=== PATIENT | male | born 1940 | race Caucasian/White ===

== ENCOUNTER 2017-05-24 16:47 | Inpatient (IN) | payer MEDICARE, BC ==
[~2017-05-24] VITALS: Ht 180.3 cm; Wt 92.5 kg
[2017-05-24 16:51] VITALS: BP 148/66; PULSE 71; RESP 16; TEMP 98; O2SAT 96
[2017-05-24] MEDS ORDERED: OMEP20TA93 PO (16:58)
--- NOTE | 2017-05-24 17:05 | PD ---
HPI Chief Complaint: Fall Time Seen by Provider: 16:59 Travel History International Travel<30 days: No Contact w/Intl Traveler<30days: No Traveled to known affect area: No History of Present Illness HPI 77-year-old male here with his for evaluation of right elbow pain after a mechanical trip and fall that occurred about an hour prior to arrival. Patient reports that he tripped on his driveway, falling forward onto her right outstretched arm. Reports that he scraped his bilateral knees, but the main pain is in his right elbow. He was able to ambulate after the fall. Denies LOC. No neck or back pain. Right elbow pain is 5 out of 10, constant, worse with movements, non-radiating. He denies right wrist or right shoulder pain. No left upper extremity pain. Reports that his last tetanus was 2 years ago. No antiplatelet or anticoagulant use. He is right-hand dominant. PFSH Past Medical History GERD: Yes Tetanus Vaccination: < 5 Years Influenza Vaccination: Yes ?: Not Past Surgical History Joint Replacement: Yes (left hip , ) Social History Alcohol Use: Yes (occ) Tobacco Use: Yes ([facility] cigar ) Substance Use: No Allergies-Medications (Allergen,Severity, Reaction): Coded Allergies: No Known Allergies (Unverified , 05/24/17) Reported Meds & Prescriptions Reported Meds & Active Scripts Active Reported Omeprazole 20 Mg Tab 20 Mg PO DAILY Review of Systems Except as stated in HPI: all other systems reviewed are Neg Physical Exam Narrative GENERAL: Well-developed, well-nourished, awake, alert, pleasant, comfortable, no apparent distress. SKIN: Focused skin assessment warm/dry. Superficial abrasions to bilateral anterior knees. If he can't right posterior elbow edema with mild ecchymosis. HEAD: Atraumatic. Normocephalic. EYES: Pupils equal and round. No scleral icterus. No injection or drainage. ENT: Mucous membranes pink and moist. NECK: Trachea midline. No JVD. No midline cervical spine step-off or tenderness. CARDIOVASCULAR: Regular rate and rhythm. Bilateral distal radial pulses are brisk and equal. Brisk capillary refill in right hand. RESPIRATORY: No accessory muscle use. MUSCULOSKELETAL: Right posterior elbow with significant edema with mild ecchymosis, no skin breaks, moderate diffuse tenderness, limited range of flexion and extension as well as pronation and supination. Right wrist/hand/ shoulder without obvious deformity, without tenderness, with normal range of motion. NEUROLOGICAL: Awake and alert. No obvious cranial nerve deficits. Motor grossly within normal limits. Normal speech. Normal sensation throughout entire right upper extremity. PSYCHIATRIC: Appropriate mood and affect; insight and judgment normal. Data Data Last Documented VS Vital Signs Date Time Temp Pulse Resp B/P (MAP) Pulse Ox O2 Delivery O2 Flow Rate FiO2 05/24/17 16:51 98.0 71 16 148/66 (93) 96 Orders Orders Elbow, Complete (4 Vws) (05/24/17 ) Forearm (2vws) (05/24/17 ) Basic Metabolic Panel (Bmp) (05/24/17 17:51) Complete Blood Count With Diff (05/24/17 17:51) Prothrombin Time / Inr (Pt) (05/24/17 17:51) Act Partial Throm Time (Ptt) (05/24/17 17:51) Iv Access Insert/Monitor (05/24/17 17:51) Ecg Monitoring (05/24/17 17:51) Oximetry (05/24/17 17:51) Sodium Chloride 0.9% Flush (Ns Flush) (05/24/17 18:00) Morphine Inj (Morphine Inj) (05/24/17 18:00) Splint Or Brace Apply/Monitor (05/24/17 18:21) Chest, Single Ap (05/24/17 ) Consult Orthopedic (05/24/17 ) Admit Order (Ed Use Only) (05/24/17 18:41) Labs Laboratory Tests Test 05/24/17 17:55 White Blood Count 8.8 TH/MM3 Red Blood Count 5.09 MIL/MM3 Hemoglobin 14.8 GM/DL Hematocrit 45.2 % Mean Corpuscular Volume 88.7 FL Mean Corpuscular Hemoglobin 29.0 PG Mean Corpuscular Hemoglobin Concent 32.7 % Red Cell Distribution Width 14.8 % Platelet Count 232 TH/MM3 Mean Platelet Volume 8.9 FL Neutrophils (%) (Auto) 78.3 % Lymphocytes (%) (Auto) 11.8 % Monocytes (%) (Auto) 6.1 % Eosinophils (%) (Auto) 0.9 % Basophils (%) (Auto) 2.9 % Neutrophils # (Auto) 6.9 TH/MM3 Lymphocytes # (Auto) 1.0 TH/MM3 Monocytes # (Auto) 0.5 TH/MM3 Eosinophils # (Auto) 0.1 TH/MM3 Basophils # (Auto) 0.3 TH/MM3 CBC Comment DIFF FINAL Differential Comment Prothrombin Time 10.5 SEC Prothromb Time International Ratio 1.0 RATIO Activated Partial Thromboplast Time 21.7 SEC Blood Urea Nitrogen 16 MG/DL Creatinine 1.20 MG/DL Random Glucose 132 MG/DL Calcium Level 8.3 MG/DL Sodium Level 143 MEQ/L Potassium Level 4.4 MEQ/L Chloride Level 108 MEQ/L Carbon Dioxide Level 27.4 MEQ/L Anion Gap 8 MEQ/L Estimat Glomerular Filtration Rate 58 ML/MIN MDM Medical Decision Making Medical Screen Exam Complete: Yes Emergency Medical Condition: Yes Differential Diagnosis Right elbow fracture versus dislocation Narrative Course Right elbow x-ray shows a comminuted fracture of the proximal ulna with displaced olecranon component. Radial head fracture as well. Case discussed with orthopedist Dr. Gonzalez who recommends placing the patient in a posterior long-arm splint and transferring him to the main hospital for ORIF tomorrow. NPO after midnight. The patient is amenable to this plan. Labs reviewed and are essentially unremarkable. Case discussed with hospitalist Dr. Smiley who will admit the patient to the hospitalist service. Diagnosis Primary Impression: Closed fracture of right elbow Qualified Codes: S42.401A - Unspecified fracture of lower end of right humerus , initial encounter for closed fracture Admitting Information Admitting Physician Requests: Admit Osei Feldman MD May 24, 2017 17:05
--- NOTE | 2017-05-24 17:50 | RADRPT ---
EXAM DATE/TIME: 05/24/2017 17:24 [facility] COMPARISON: No previous studies available for comparison. INDICATIONS : Trauma to elbow. MEDICAL HISTORY : Previously broken elbow. SURGICAL HISTORY : None. ENCOUNTER: Initial ACUITY: 1 day PAIN SCORE: 7/10 LOCATION: Right upper extremity elbow, posterior. FINDINGS: 4 views of the right elbow. Comminuted fracture of the proximal ulna involving the coronoid process a nd the olecranon process. Olecranon process component is displaced 1.5 cm. Fracture of the radial hea d with intra-articular involvement and up to 4 mm displacement. Large joint effusion. CONCLUSION: 1. Comminuted fracture of the proximal ulna with displaced olecranon component. 2. Radial head fracture. Bayron Cohen MD on May 24, 2017 at 17:46 Board Certified Radiologist. This report was verified electronically.
--- NOTE | 2017-05-24 17:51 | RADRPT ---
EXAM DATE/TIME: 05/24/2017 17:24 [facility] COMPARISON: No previous studies available for comparison. INDICATIONS : Trauma to elbow. MEDICAL HISTORY : previously broken elbow. SURGICAL HISTORY : None. ENCOUNTER: Initial ACUITY: 1 day PAIN SCORE: 7/10 LOCATION: Right upper extremity proximal radius and ulna. FINDINGS: 2 views of the forearm. Proximal radius and ulna fractures fully described on elbow series report. No evidence of more distal fracture. CONCLUSION: Proximal radius and ulna fractures. Bayron Cohen MD on May 24, 2017 at 17:48 Board Certified Radiologist. This report was verified electronically.
[2017-05-24] MEDS ORDERED: MORPHINE SULFATE 2 MG/ML INJ IV PUSH ONE (18:00)
[2017-05-24] MEDS ORDERED: SODIUM CHLORIDE 0.9% FLUSH 10 ML FLUSH IV FLUSH PRN ×2 (18:00→18:45)
[2017-05-24 18:19] LABS: AUTOMATED NEUTROPHIL # 6.9 TH/MM3 (1.8-7.7); BASOPHIL # 0.3 TH/MM3 (0-0.2); BASOPHIL % 2.9 % (0.0-2.0); EOSINOPHIL # 0.1 TH/MM3 (0-0.4); EOSINOPHIL % 0.9 % (0.0-4.0); HEMATOCRIT 45.2 % (39.0-51.0); HEMOGLOBIN 14.8 GM/DL (13.0-17.0); LYMPH % 11.8 % (9.0-44.0); MEAN CELL VOLUME 88.7 FL (80.0-100.0); MEAN CORPUSCULAR HGB CONC 32.7 % (32.0-36.0); MEAN PLATELET VOLUME 8.9 FL (7.0-11.0); MONO % 6.1 % (0.0-8.0); MONOCYTE # 0.5 TH/MM3 (0-0.9); NEUT % 78.3 % (16.0-70.0); PLATELET COUNT 232 TH/MM3 (150-450); RED BLOOD COUNT 5.09 MIL/MM3 (4.50-5.90); RED CELL DISTRIBUTION WIDTH 14.8 % (11.6-17.2); WHITE BLOOD COUNT 8.8 TH/MM3 (4.0-11.0)
[2017-05-24 18:31] LABS: BICARBONATE 27.4 MEQ/L (21.0-32.0); CALCIUM 8.3 MG/DL (8.5-10.1)
[2017-05-24 18:32] LABS: PROTHROMBIN TIME - PATIENT 10.5 SEC (9.8-11.6)
[2017-05-24 18:35] LABS: CREATININE 1.2 MG/DL (0.60-1.30)
[2017-05-24] MEDS ORDERED: MAGNESIUM HYDROXIDE SUSP 30 ML CUP PO PRN (18:45)
[2017-05-24] MEDS ORDERED: ACETAMINOPHEN/HYDROcodone 325 MG/7.5 MG TAB PO PRN (18:45)
[2017-05-24] MEDS ORDERED: BISACODYL 10 MG SUPP RECTAL PRN (18:45)
[2017-05-24] MEDS ORDERED: LACTULOSE SYRUP 20 GM/30 ML CUP PO PRN (18:45)
[2017-05-24] MEDS ORDERED: NALOXONE HCL 0.4 MG/ML AMP IV PUSH PRN (18:45)
[2017-05-24] MEDS ORDERED: ONDANSETRON HCL 4 MG/2 ML VIAL IVP PRN (18:45)
[2017-05-24] MEDS ORDERED: SENNOSIDES 8.6 MG TAB PO PRN (18:45)
[2017-05-24] MEDS ORDERED: ACETAMINOPHEN 500 MG CPLT PO PRN (18:45)
[2017-05-24 19:10] VITALS: BP 129/59; PULSE 73; RESP 20; TEMP 98.1; O2SAT 95
--- NOTE | 2017-05-24 19:19 | RADRPT ---
EXAM DATE/TIME: 05/24/2017 18:49 [facility] COMPARISON: No previous studies available for comparison. INDICATIONS : Pre-op for broken elbow. Evaluate for pneumonia, pneumothorax, or any other communicable diseases. MEDICAL HISTORY : None. SURGICAL HISTORY : None. ENCOUNTER: Initial ACUITY: 1 day PAIN SCORE: 0/10 LOCATION: Bilateral chest FINDINGS: Single AP view of the chest. The lungs are clear. Cardiomediastinal silhouette within normal limits. No evidence of pleural effusion or pneumothorax. CONCLUSION: No acute cardiopulmonary disease identified. Bayron Cohen MD on May 24, 2017 at 19:17 Board Certified Radiologist. This report was verified electronically.
[2017-05-24 21:00] VITALS: BP 148/74; PULSE 76; RESP 20; O2SAT 98
[2017-05-24] MEDS: MORPHINE SULFATE 2 MG/ML INJ IV PUSH PRN (23:10)
[2017-05-24 23:19] VITALS: BP 132/68
[2017-05-25] VITALS: BP 148/64; PULSE 73; RESP 18; TEMP 97.3; O2SAT 95
--- NOTE | 2017-05-25 01:09 | HHI.HP ---
[facility] Damián Alicia III, MD Admission Diagnosis closed right elbow fracture Diagnoses: Travel History International Travel<30 Days: No Contact w/Intl Traveler <30 Da: No Traveled to Known Affected Are: No History of Present Illness 77-year-old male with a past medical history significant for GERD presents to the emergency department after a fall on an outstretched hand. The patient reports he was walking with his this evening after dinner when he tripped over a crack in the sidewalk and fell. He fell onto an extended right arm and broke his glasses in the fall. He denies hitting his head or loss of consciousness. X-ray of the right upper extremity show radial head fracture and comminuted fracture of the proximal ulnar with displaced olecranon component. Review of Systems Denies fever or chills Denies blurry vision, otorrhea, rhinorrhea Denies sore throat and cough No chest pain, palpitations, shortness of breath No abdominal pain Denies constipation/diarrhea/nausea/vomiting Denies muscle pain/weakness No rashes Past Family Social History Past Medical History GERD Past Surgical History Left hip and arm repair secondary to fall Tonsillectomy Reported Medications Reported Meds & Active Scripts Active Reported Omeprazole 20 Mg Tab 20 Mg PO DAILY Allergies: Coded Allergies: No Known Allergies (Unverified , 05/24/17) Family History Father with diabetes mellitus Social History Smokes one cigar per month. Occasional alcohol. Denies illicit drugs. Physical Exam Vital Signs Vital Signs Date Time Temp Pulse Resp B/P (MAP) Pulse Ox O2 Delivery O2 Flow Rate FiO2 05/25/17 00:00 97.3 73 18 148/64 (92) 95 05/24/17 23:19 79 20 132/68 (89) 98 05/24/17 21:00 76 20 148/74 (98) 98 05/24/17 19:15 20 96 05/24/17 19:10 98.1 73 20 129/59 (82) 95 05/24/17 19:08 20 05/24/17 16:51 98.0 71 16 148/66 (93) 96 Physical Exam GENERAL: male sitting up in bed SKIN: No rashes, ecchymoses or lesions. Cool and dry. HEAD: Atraumatic. Normocephalic. No temporal or scalp tenderness. EYES: Pupils equal round and reactive. Extraocular motions intact. No scleral icterus. No injection or drainage. ENT: Nose without bleeding, purulent drainage or septal hematoma. Throat without erythema, tonsillar hypertrophy or exudate. Uvula midline. Airway patent. NECK: Trachea midline. No JVD or lymphadenopathy. Supple, nontender, no meningeal signs. CARDIOVASCULAR: Regular rate and rhythm without murmurs, gallops, or rubs. RESPIRATORY: Clear to auscultation. Breath sounds equal bilaterally. No wheezes , rales, or rhonchi. GASTROINTESTINAL: Abdomen soft, non-tender, nondistended. No hepato-splenomegaly , or palpable masses. No guarding. MUSCULOSKELETAL: Extremities without clubbing, cyanosis, or edema. No joint tenderness, effusion, or edema noted. No calf tenderness. Right upper extremity splinted. Full range of motion of all 5 digits. Neurovascularly intact. NEUROLOGICAL: Awake and alert. Cranial nerves II through XII intact. Motor and sensory grossly within normal limits. Normal speech. Laboratory Laboratory Tests Test 05/24/17 17:55 White Blood Count 8.8 Red Blood Count 5.09 Hemoglobin 14.8 Hematocrit 45.2 Mean Corpuscular Volume 88.7 Mean Corpuscular Hemoglobin 29.0 Mean Corpuscular Hemoglobin Concent 32.7 Red Cell Distribution Width 14.8 Platelet Count 232 Mean Platelet Volume 8.9 Neutrophils (%) (Auto) 78.3 Lymphocytes (%) (Auto) 11.8 Monocytes (%) (Auto) 6.1 Eosinophils (%) (Auto) 0.9 Basophils (%) (Auto) 2.9 Neutrophils # (Auto) 6.9 Lymphocytes # (Auto) 1.0 Monocytes # (Auto) 0.5 Eosinophils # (Auto) 0.1 Basophils # (Auto) 0.3 CBC Comment DIFF FINAL Differential Comment Prothrombin Time 10.5 Prothromb Time International Ratio 1.0 Activated Partial Thromboplast Time 21.7 Blood Urea Nitrogen 16 Creatinine 1.20 Random Glucose 132 Calcium Level 8.3 Sodium Level 143 Potassium Level 4.4 Chloride Level 108 Carbon Dioxide Level 27.4 Anion Gap 8 Estimat Glomerular Filtration Rate 58 Result Diagram: 05/24/17175405/24/171754 Caprini VTE Risk Assessment Caprini VTE Risk Assessment: Mod/High Risk (score >= 2) Caprini Risk Assessment Model Point Value = 1 Point Value = 2 Point Value = 3 Point Value = 5 Age 41-60 Minor surgery BMI > 25 kg/m2 Swollen legs Varicose veins or History of unexplained or recurrent spontaneous Oral contraceptives or hormone replacement Sepsis (< 1 month) Serious lung disease, including pneumonia (< 1 month) Abnormal pulmonary function Acute myocardial infarction Congestive heart failure (< 1 month) History of inflammatory bowel disease Medical patient at bed rest Age 61-74 Arthroscopic surgery Major open surgery (> 45 min) Laparoscopic surgery (> 45 min) Malignancy Confined to bed (> 72 hours) Immobilizing plaster cast Central venous access Age >= 75 History of VTE Family history of VTE Factor V Leiden Prothrombin [id number] Lupus anticoagulant Anticardiolipin antibodies Elevated serum homocysteine Heparin-induced thrombocytopenia Other congenital or acquired thrombophilia Stroke (< 1 month) Elective arthroplasty Hip, pelvis, or leg fracture Acute spinal cord injury (< 1 month) Prophylaxis Regimen Total Risk Factor Score Risk Level Prophylaxis Regimen 0-1 Low Early ambulation 2 Moderate Order ONE of the following: *Sequential Compression Device (SCD) *Heparin 5000 units SQ BID 3-4 Higher Order ONE of the following medications: *Heparin 5000 units SQ TID *Enoxaparin/Lovenox 40 mg SQ daily (WT < 150 kg, CrCl > 30 mL/min) *Enoxaparin/Lovenox 30 mg SQ daily (WT < 150 kg, CrCl > 10-29 mL/min) *Enoxaparin/Lovenox 30 mg SQ BID (WT < 150 kg, CrCl > 30 mL/min) AND/OR *Sequential Compression Device (SCD) 5 or more Highest Order ONE of the following medications: *Heparin 5000 units SQ TID (Preferred with Epidurals) *Enoxaparin/Lovenox 40 mg SQ daily (WT < 150 kg, CrCl > 30 mL/min) *Enoxaparin/Lovenox 30 mg SQ daily (WT < 150 kg, CrCl > 10-29 mL/min) *Enoxaparin/Lovenox 30 mg SQ BID (WT < 150 kg, CrCl > 30 mL/min) AND *Sequential Compression Device (SCD) Assessment and Plan Assessment and Plan Assessment/plan: 1. Radial head fracture/Comminuted fracture of the proximal ulna with displaced olecranon component Orthopedic surgery consulted, appreciate assistance Nothing by mouth in anticipation of operative intervention later today Morphine for pain 2. GERD Continue home omeprazole FEN NPO NS at 100 cc/hr Electrolytes: monitor and replete prn Holding pharmacologic anticoagulation in anticipation of operative intervention Physician Certification 2 Midnight Certification Type: Admission for Inpatient Services Order for Inpatient Services The services are ordered in accordance with Medicare regulations or non- Medicare payer requirements, as applicable. In the case of services not specified as inpatient-only, they are appropriately provided as inpatient services in accordance with the 2-midnight benchmark. Estimated LOS (days): 2 2 days is the estimated time the patient will need to remain in the hospital, assuming treatment plan goals are met and no additional complications. Post-Hospital Plan: Not yet determined Noelle Moreira MD May 25, 2017 01:09
[2017-05-25] MEDS: SODIUM CHLOR 0.9% 1000 ML INJ 1,000 ML IV SCH ×3 (01:22→19:49)
[2017-05-25] MEDS: MORPHINE SULFATE 2 MG/ML INJ IV PUSH PRN ×4 (04:14→15:38)
[2017-05-25 04:17] VITALS: BP 129/70; PULSE 73; RESP 18; TEMP 97.4; O2SAT 96
[2017-05-25 08:00] VITALS: BP 144/69; PULSE 74; RESP 17; TEMP 97.9; O2SAT 93
[2017-05-25] MEDS: PANTOPRAZOLE SOD 20 MG DELAYED RELEASE TAB PO SCH (08:17)
[2017-05-25] MEDS: SODIUM CHLORIDE 0.9% FLUSH 10 ML FLUSH IV FLUSH SCH ×3 (08:17→21:00)
[2017-05-25 12:00] VITALS: BP 143/66; PULSE 71; RESP 17; TEMP 97.8; O2SAT 93
[2017-05-25] MEDS ORDERED: DEXAMETHASONE SOD PHOS 4 MG/ML VIAL IV ONE (12:00)
[2017-05-25] MEDS ORDERED: LIDOCAINE HCL 1% PF 5 ML SYRINGE OTHER ONE (12:00)
[2017-05-25] MEDS ORDERED: ONDANSETRON HCL 4 MG/2 ML VIAL IV ONE (12:00)
[2017-05-25] MEDS ORDERED: ROCURONIUM INJ 50 MG/5 ML SYRINGE IV PUSH ONE (12:00)
[2017-05-25] MEDS ORDERED: PROPOFOL 200 MG/20 ML AMP IV ONE (12:00)
[2017-05-25 16:00] VITALS: BP 137/77; PULSE 67; RESP 17; TEMP 98.1; O2SAT 93
[2017-05-25] MEDS ORDERED: ceFAZolin 2 GM PREMIX 50 ML ONE (16:36)
[2017-05-25] MEDS ORDERED: VANCOMYCIN HCL 1000 MG VIAL ONE (16:36)
[2017-05-25] MEDS ORDERED: GENTAMICIN SULFATE 80 MG/2 ML VIAL ONE (16:36)
[2017-05-25] MEDS ORDERED: PERC5TAB12 PO (17:20)
--- NOTE | 2017-05-25 17:20 | PD.CONS ---
cc: Tobias Gonzalez Jr., MD HPI Service [facility] Consult Requested By Primary Care Physician Damián Alicia III, MD Admission Diagnosis closed right elbow fracture Diagnoses: Chief Complaint: Right olecranon and radial head fracture History of Present Illness 77-year-old male with a past medical history significant for GERD presents to the emergency department after a fall on an outstretched hand. The patient reports he was walking with his this evening after dinner when he tripped over a crack in the sidewalk and fell. He fell onto an extended right arm and broke his glasses in the fall. He denies hitting his head or loss of consciousness. X-ray of the right upper extremity show radial head fracture and comminuted fracture of the olecranon. -Currently is alert, pain localized at the right elbow, patient's is 6 out of 10, exacerbated by any range of motion , WB, relieved at rest and with IV pain medicine, pain is sharp nonradiating, dull, not associated with any paresthesia and numbness to the extremity. Review of Systems Denies fever or chills Denies blurry vision, otorrhea, rhinorrhea Denies sore throat and cough No chest pain, palpitations, shortness of breath No abdominal pain Denies constipation/diarrhea/nausea/vomiting Denies muscle pain/weakness No rashes Past Family Social History Past Medical History GERD Past Surgical History Left hip and arm repair secondary to fall Tonsillectomy Reported Medications Reported Meds & Active Scripts Active Reported Omeprazole 20 Mg Tab 20 Mg PO DAILY Allergies: Coded Allergies: No Known Allergies (Unverified , 05/24/17) Family History Father with diabetes mellitus Social History Smokes one cigar per month. Occasional alcohol. Denies illicit drugs. Review of Systems Constitutional: DENIES: Diaphoretic episodes, Fatigue, Fever, Weight gain, Weight loss, Chills, Dizziness, Change in appetite, Night Sweats Endocrine: DENIES: Heat/cold intolerance, Polydipsia, Polyuria, Polyphagia Eyes: DENIES: Blurred vision, Diplopia, Eye inflammation, Eye pain, Vision loss , Photosensitivity, Double Vision Ears, nose, mouth, throat: DENIES: Tinnitus, Hearing loss, Vertigo, Nasal discharge, Oral lesions, Throat pain, Hoarseness, Ear Pain, Running Nose, Epistaxis, Sinus Pain, Toothache, Odynophagia Respiratory: DENIES: Apneas, Cough, Snoring, Wheezing, Hemoptysis, Sputum production, Shortness of breath Past Family Social History Past Medical History GERD Past Surgical History Left hip and arm repair secondary to fall Tonsillectomy Allergies: Coded Allergies: No Known Allergies (Unverified , 05/24/17) Active Ordered Medications Current Medications Medications (Trade) Dose Ordered Sig/Adams Route Start Time Stop Time Status Last Admin (NS Flush) 2 ml UNSCH PRN IV FLUSH 05/24/17 18:45 (NS Flush) 2 ml BID IV FLUSH 05/24/17 21:00 05/25/17 08:17 (Zofran Inj) 4 mg Q6H PRN IVP 05/24/17 18:45 05/24/17 23:07 (Narcan Inj) 0.4 mg UNSCH PRN IV PUSH 05/24/17 18:45 (Milk Of Magnesia Liq) 30 ml Q12H PRN PO 05/24/17 18:45 (Senokot) 17.2 mg Q12H PRN PO 05/24/17 18:45 (Dulcolax Supp) 10 mg DAILY PRN RECTAL 05/24/17 18:45 (Lactulose Liq) 30 ml DAILY PRN PO 05/24/17 18:45 (Tylenol) 500 mg Q6H PRN PO 05/24/17 18:45 ([place] 7.5-325 Mg) 1 tab Q6H PRN PO 05/24/17 18:45 (Morphine Inj) 4 mg Q3H PRN IV PUSH 05/24/17 19:30 05/25/17 15:38 (Protonix) 20 mg DAILY PO 05/25/17 09:00 05/25/17 08:17 Sodium Chloride 1,000 ml @ 100 mls/hr Q10H IV 05/25/17 01:15 05/25/17 11:35 Reported Meds & Active Scripts Active Reported Omeprazole 20 Mg Tab 20 Mg PO DAILY Family History Father with diabetes mellitus Social History Smokes one cigar per month. Occasional alcohol. Denies illicit drugs. Physical Exam Vital Signs Vital Signs Date Time Temp Pulse Resp B/P (MAP) Pulse Ox O2 Delivery O2 Flow Rate FiO2 05/25/17 16:00 98.1 67 17 137/77 (97) 93 05/25/17 12:00 97.8 71 17 143/66 (91) 93 05/25/17 08:00 97.9 74 17 144/69 (94) 93 05/25/17 04:17 97.4 73 18 129/70 (89) 96 05/25/17 00:00 97.3 73 18 148/64 (92) 95 05/24/17 23:19 79 20 132/68 (89) 98 05/24/17 21:00 76 20 148/74 (98) 98 05/24/17 19:15 20 96 05/24/17 19:10 98.1 73 20 129/59 (82) 95 05/24/17 19:08 20 Physical Exam Alert awake and oriented x 3. No acute distress. Head: NC/AT Neck: No pain with any range of motion and neck. Trachea is midline. No tenderness to palpation along posterior cervical elements. Pulmonary: Normal respiratory effort. Right upper extremity: Sliding place. Swelling and the risks and hand. Able to wiggle fingers. Fingers are warm well perfused. Left upper extremity: No deformities Intact sensation distally in median, ulnar , and radial nerve. Intact motor in anterior interosseous, posterior interosseous, and ulnar nerve. 2+ radial artery pulses. Good cap refill. Bilateral lower extremity: No deformity, grossly Neurovascularly intact, Supple compartments. Negative Homans sign. Laboratory Laboratory Tests Test 05/24/17 17:55 White Blood Count 8.8 Red Blood Count 5.09 Hemoglobin 14.8 Hematocrit 45.2 Mean Corpuscular Volume 88.7 Mean Corpuscular Hemoglobin 29.0 Mean Corpuscular Hemoglobin Concent 32.7 Red Cell Distribution Width 14.8 Platelet Count 232 Mean Platelet Volume 8.9 Neutrophils (%) (Auto) 78.3 Lymphocytes (%) (Auto) 11.8 Monocytes (%) (Auto) 6.1 Eosinophils (%) (Auto) 0.9 Basophils (%) (Auto) 2.9 Neutrophils # (Auto) 6.9 Lymphocytes # (Auto) 1.0 Monocytes # (Auto) 0.5 Eosinophils # (Auto) 0.1 Basophils # (Auto) 0.3 CBC Comment DIFF FINAL Differential Comment Prothrombin Time 10.5 Prothromb Time International Ratio 1.0 Activated Partial Thromboplast Time 21.7 Blood Urea Nitrogen 16 Creatinine 1.20 Random Glucose 132 Calcium Level 8.3 Sodium Level 143 Potassium Level 4.4 Chloride Level 108 Carbon Dioxide Level 27.4 Anion Gap 8 Estimat Glomerular Filtration Rate 58 Result Diagram: 05/24/17 1755 05/24/17 1755 Imaging Last 72 hours Impressions Radius/Ulna X-Ray 05/24/17 0000 Signed Impressions: Service Date/Time: Wednesday, May 24, 2017 17:24 - CONCLUSION: Proximal radius and ulna fractures. Bayron Cohen MD Elbow X-Ray 05/24/17 0000 Signed Impressions: Service Date/Time: Wednesday, May 24, 2017 17:24 - CONCLUSION: 1. Comminuted fracture of the proximal ulna with displaced olecranon component. 2. Radial head fracture. Bayron Cohen MD Chest X-Ray 05/24/17 0000 Signed Impressions: Service Date/Time: Wednesday, May 24, 2017 18:49 - CONCLUSION: No acute cardiopulmonary disease identified. Bayron Cohen MD Assessment & Plan Assessment and Plan 77-year-old male with a past medical history significant for GERD presents to the emergency department after a fall on an outstretched hand. The patient reports he was walking with his this evening after dinner when he tripped over a crack in the sidewalk and fell. He presented with complaint of right elbow pain. He is grossly neurovascularly intact. X-ray examination from the emergency department reveal fracture of the olecranon and radial head. His fractures are stable and I recommended open reduction internal fixation of the olecranon with possible fixation of the radial head. I recommend, open reduction internal fixation I discussed my treatment plans with the patient, as well as risks, benefits and alternatives of surgical Intervention versus nonoperative treatment. In this case, the risks of operative intervention involves bleeding, infection, nonunion, malunion, risks of damage to neurovascular structures, the risk of needing further surgery, posttraumatic arthritis and the risks involved with complication from anesthesia. We will proceed with the above procedure. The patient accepts these risks; understands and agrees with my recommendations. I also discussed my proposed postoperative care and follow-up plan. All questions were answered. Plan for OR []. Nothing by mouth []. Patient consented. Thanks for the consult, thanks for allowing me to participate in this patient's medical care. Tobias Gonzalez Jr., MD May 25, 2017 17:20
[2017-05-25] MEDS ORDERED: oxyCODONE/ACETAMINOPHEN 5 MG/325 MG TAB PO PRN ×2 (17:30)
[2017-05-25] MEDS ORDERED: SODIUM CHLORIDE 0.9% FLUSH 10 ML FLUSH IV FLUSH PRN (17:30)
[2017-05-25] MEDS ORDERED: KETOROLAC TROMETHAMINE 30 MG/ML (IVP) VIAL IVP ONE (17:30)
[2017-05-25] MEDS ORDERED: ONDANSETRON HCL 4 MG/2 ML VIAL IV PUSH PRN (17:30)
[2017-05-25] MEDS ORDERED: ZOLPIDEM TARTRATE 5 MG TAB PO PRN (17:30)
[2017-05-25] MEDS ORDERED: DO NOT ADM ANY ANTICOAGULANT DRUGS PRN (19:17)
--- NOTE | 2017-05-25 19:19 | RADRPT ---
EXAM DATE/TIME: 05/25/2017 18:11 [facility] COMPARISON: ELBOW RIGHT COMPLETE (4 VWS), May 24, 2017, 17:24. INDICATIONS : Right elbow ORIF. MEDICAL HISTORY : None. SURGICAL HISTORY : None. ENCOUNTER: Initial ACUITY: 1 day PAIN SCORE: 0/10 LOCATION: Right elbow FINDINGS: Multiple views in the operating room show open reduction and then screw and plate fixation of the ole cranon fracture. Postsurgical alignment is near-anatomic. A depressed radial head fracture is again n oted. CONCLUSION: Open reduction internal fixation of the olecranon fracture into normal alignment. No acute complicati on demonstrated. Donnie Martins MD on May 25, 2017 at 19:17 Board Certified Radiologist. This report was verified electronically.
--- NOTE | 2017-05-25 19:40 | PD.OP ---
cc: Tobias Gonzalez Jr., MD Operative Report Date of Surgery: May 25, 2017 Preoperative Diagnosis: #1 right olecranon fracture #2 right minimally displaced radial head fracture Postoperative Diagnosis: Same Procedure: #1 open reduction internal fixation right olecranon #2 manipulation under anesthesia of the right elbow and examination of radial head fracture Anesthesia: Gen. Surgeon: Tobias Gonzalez Ground Support Agent(s): ALEXIS Smith The surgical procedure was assisted by my Advanced Registered Nurse Practitioner. My SAP ANALYST presence was necessary throughout this case for the manipulation and positioning of the surgical extremity. My SAP ANALYST was assisting me throughout the duration of this procedure. The skill set of an Advance Registered Nurse Practitioner was medically necessary to complete this procedure. During the surgical case, the surgical garment assembler was working at the back table and the Advance Registered Nurse Practitioner was directly assisting me. Resident Surgeon: None Operation and Findings: Patient was seen and evaluated preoperatively and found to have a displaced right olecranon fracture. Informed consent was obtained after detailed discussion of risk and benefits including bleeding, infection, injury to arteries, nerves, and blood vessels, weakness and numbness of hand, and tendon rupture. Informed consent was obtained. Patient received IV antibiotics prior to incision. Timeout procedure was performed. Operative extremity was prepped with alcohol followed by Hibiclens and draped usual sterile fashion. A standard direct posterior approach to the olecranon was performed. Dissection taken down to the olecranon process and then distal to the proximal shaft. A transverse displaced comminuted olecranon fracture was identified with a large volar fragment.The ulnar nerve was identified in the groove and was kept in direct visualization and protected throughout the entire procedure. The fracture site was now visualized. The fracture ends were sharply debrided and cleaned. The articular surface was reduced. Fracture fragments were manipulated to achieve excellent reduction. K wires were used to hold provisional fixation. Fluoroscopy confirmed appropriate alignment of fracture. A Synthes olecranon plate was selected . Plate was provisionally fixed to bone with K wires. 2.7 screws and 3.5 cortical screws were used to compress plate to bone. Fluoroscopy confirmed appropriate alignment of fracture with well-placed hardware. Additional screws were now placed. Screws were predrilled and measured for appropriate length. K wires were removed. Examination under anesthesia revealed the elbow joint was stable to range of motion as well as varus and valgus stress. There was a minimally displaced fracture of the radial head with a small lateral capsular avulsion. The radial head was overall intact and did not require fixation. Final fluoroscopy revealed excellent reduction of fracture with well-placed hardware. The wound was thoroughly irrigated with sterile saline. Subcutaneous tissue was closed with 2-0 vicryl, 3-0 Vicryl and skin was closed with ankush [] 2.0 nylon. Sterile dressings were applied with Xeroform, 4 x 4, soft roll, and a well padded long-arm posterior splint. Patient was awakened and transferred to recovery room in stable condition IMPLANTS USED Synthes POSTP-OP PLAN OF ACTIVITY Antibiotics: Ancef Antiocoagulation: OOB TID. SCD Weight bearing status: NWB Dressing: Do not remove splints Dispo: expected discharge when pain controlled. ok per ortho to dc. f/u 2 wks Tobias Gonzalez Jr., MD May 25, 2017 19:40
[2017-05-25] MEDS ORDERED: *morphine SULFATE 4 MG/ML PERIprocedure ONLY ONE (19:45)
[2017-05-25] MEDS ORDERED: *morphine SULFATE 10 MG/ML PERIprocedure ONLY ONE (19:57)
[2017-05-25 20:37] VITALS: BP 159/79; PULSE 87; RESP 18; TEMP 98.2; O2SAT 96
[2017-05-25] MEDS: DOCUSATE SODIUM 100 MG CAP PO SCH (21:05)
[2017-05-26 00:07] VITALS: BP 147/63; PULSE 81; RESP 18; TEMP 98.7; O2SAT 94
[2017-05-26 04:58] VITALS: BP 126/51; PULSE 77; RESP 18; TEMP 98.4; O2SAT 95
[2017-05-26 07:30] VITALS: BP 128/61; PULSE 75; RESP 18; TEMP 97.8; O2SAT 95
[2017-05-26] MEDS: SODIUM CHLORIDE 0.9% FLUSH 10 ML FLUSH IV FLUSH SCH ×2 (09:00)
[2017-05-26] MEDS: PANTOPRAZOLE SOD 20 MG DELAYED RELEASE TAB PO SCH (09:15)
[2017-05-26] MEDS: DOCUSATE SODIUM 100 MG CAP PO SCH (09:16)
[2017-05-26 09:38] VITALS: O2SAT 95
[2017-05-26 11:23] VITALS: BP 144/67; PULSE 80; RESP 18; TEMP 97.3; O2SAT 95
--- NOTE | 2017-05-26 13:00 | PD.ORT.PN ---
Subjective Subjective Remarks no issues. doing well. Objective Vitals Vital Signs Date Time Temp Pulse Resp B/P (MAP) Pulse Ox O2 Delivery O2 Flow Rate FiO2 05/26/17 11:23 97.3 80 18 144/67 (92) 95 05/26/17 09:38 95 Nasal Cannula 3.00 05/26/17 07:30 97.8 75 18 128/61 (83) 95 05/26/17 04:58 98.4 77 18 126/51 (76) 95 05/26/17 00:07 98.7 81 18 147/63 (91) 94 05/25/17 20:37 98.2 87 18 159/79 (105) 96 05/25/17 20:00 81 16 172/80 (110) 97 Nasal Cannula 3 05/25/17 19:45 82 22 180/84 (116) 95 Nasal Cannula 4 05/25/17 19:30 85 22 178/81 (113) 95 Nasal Cannula 4 05/25/17 19:20 89 22 186/83 (117) 95 Nasal Cannula 4 05/25/17 19:19 98.6 90 16 188/86 (120) 95 Nasal Cannula 4 05/25/17 17:16 98.3 74 18 157/71 (99) 100 05/25/17 16:00 98.1 67 17 137/77 (97) 93 I/O 05/25/17 05/25/17 05/25/17 05/26/17 05/26/17 05/26/17 07:00 15:00 23:00 07:00 15:00 23:00 Intake Total 0 ml 1000 ml 1238 ml 560 ml Output Total 725 ml Balance 0 ml 1000 ml 513 ml 560 ml Intake Oral 0 ml 0 ml 240 ml 360 ml IV Total 1000 ml 348 ml 200 ml Other 650 ml Output Urine Total 700 ml Estimated Blood Loss 25 ml # Voids 3 2 0 2 # Bowel Movements 0 0 0 0 Result Diagram: 05/24/17175405/24/171754 Objective Remarks RUE: nvi. sling in place, dressing CDI Assessment & Plan Assessment and Plan 1- right radial head- nonop 2- ORIF right olecranon POD 1 doing well. postop abx NWB no dressing change lovenox while admitted, per primary team discretion at de Tobias Gonzalez Jr., MD May 26, 2017 13:00
--- NOTE | 2017-05-26 16:36 | HHI.PR ---
Subjective Remarks doing well, wants to go home, the nurse had a verbal clearance by ortho for discharge Objective Vitals Vital Signs Date Time Temp Pulse Resp B/P (MAP) Pulse Ox O2 Delivery O2 Flow Rate FiO2 05/26/17 11:23 97.3 80 18 144/67 (92) 95 05/26/17 09:38 95 Nasal Cannula 3.00 05/26/17 07:30 97.8 75 18 128/61 (83) 95 05/26/17 04:58 98.4 77 18 126/51 (76) 95 05/26/17 00:07 98.7 81 18 147/63 (91) 94 05/25/17 20:37 98.2 87 18 159/79 (105) 96 05/25/17 20:00 81 16 172/80 (110) 97 Nasal Cannula 3 05/25/17 19:45 82 22 180/84 (116) 95 Nasal Cannula 4 05/25/17 19:30 85 22 178/81 (113) 95 Nasal Cannula 4 05/25/17 19:20 89 22 186/83 (117) 95 Nasal Cannula 4 05/25/17 19:19 98.6 90 16 188/86 (120) 95 Nasal Cannula 4 05/25/17 17:16 98.3 74 18 157/71 (99) 100 I/O 05/25/17 05/25/17 05/25/17 05/26/17 05/26/17 05/26/17 07:00 15:00 23:00 07:00 15:00 23:00 Intake Total 0 ml 1000 ml 1238 ml 560 ml 950 ml Output Total 725 ml Balance 0 ml 1000 ml 513 ml 560 ml 950 ml Intake Oral 0 ml 0 ml 240 ml 360 ml 950 ml IV Total 1000 ml 348 ml 200 ml Other 650 ml Output Urine Total 700 ml Estimated Blood Loss 25 ml # Voids 3 2 0 2 4 # Bowel Movements 0 0 0 0 Result Diagram: 05/24/17175405/24/171754 Objective Remarks GENERAL: This is a well-nourished, well-developed patient, in no apparent distress. SKIN: No rashes, warm and dry HEAD: Atraumatic. Normocephalic. EYES: Pupils equal round and reactive. Extraocular motions intact. No scleral icterus. ENT: Nose without bleeding, or drainage, Airway patent. NECK: Trachea midline. Supple CARDIOVASCULAR: Regular rate and rhythm without murmurs, gallops, or rubs. RESPIRATORY: Fair air entry bilaterally. No wheezes, rales, or rhonchi. GASTROINTESTINAL: Abdomen soft, non-tender, nondistended. Positive bowel sounds MUSCULOSKELETAL: R UE in sling, lower Extremities without clubbing, cyanosis, or edema. Pedal pulses appreciated NEUROLOGICAL: Awake and alert. Moves all extremity. Normal speech.no focal neurological deficit A/P Assessment and Plan 1. Radial head fracture/Comminuted fracture of the proximal ulna with displaced olecranon component Orthopedic surgery consulted, appreciate assistance Status post open reduction right olecranon, and prepared displaced radial fracture Morphine for pain 2. GERD Continue home omeprazole FEN NPO NS at 100 cc/hr Electrolytes: monitor and replete prn Holding pharmacologic anticoagulation in anticipation of operative intervention Discharge Planning Discharge patient to home Condition on discharge: Improved Regular Diet as tolerated Ad Maryam activity Rx written: See [facility] rec Follow-up with primary care physician and ortho in 10 days Mary Anne Sanchez MD May 26, 2017 16:36
[2017-05-26] MEDS ORDERED: ENOXAPARIN SODIUM 30 MG/0.3 ML SYRINGE SQ SCH (19:00)
== END 2017-05-26 16:32 | disposition home or self-care (01) | DRG 512 ==
LOC: PHED 16:47 → PHEDA 18:43 → N06A 23:39
PROVIDERS: ADMIT Hospitalist; ATTEND Hospitalist
PROC: 0PSH0ZZ Reposition Right Radius, Open Approach (ICD-10-PCS; 2017-05-25)
PROC: 0PSK04Z Reposition Right Ulna with Internal Fixation Device, Open Approach (ICD-10-PCS; principal; 2017-05-25 17:31)
DX: S52.021A Displaced fracture of olecranon process without intraarticular extension of right ulna, initial encounter for closed fracture (principal); K21.9 Gastro-esophageal reflux disease without esophagitis; S52.121A Displaced fracture of head of right radius, initial encounter for closed fracture; W01.0XXA Fall on same level from slipping, tripping and stumbling without subsequent striking against object, initial encounter; Y92.480 Sidewalk as the place of occurrence of the external cause; Z72.0 Tobacco use
CPT/HCPCS: 71010; 73070; 73080; 73090; 76000; 80048; 85025; 85610; 85730; 96374; C1713; J0690; J1100; J1580; J2270; J2405; J3370; J7030